=== PATIENT | male | born 1950 | race Caucasian/White ===

== ENCOUNTER 2018-02-24 11:10 | Emergency (ER) | payer MEDICARE, OTHER ==
[2018-02-24 11:38] LABS: INR-International Normal Ratio 1.1; PTT 26.3 SEC (22.9-36.1); Prothrombin Time 13.9 SEC (12.0-14.7)
[2018-02-24] MEDS ORDERED: Nitroglycerin 2% Ointment 1 INCH/1 GM Packet ONE (11:38)
[2018-02-24 11:50] LABS: #Basophils 0.1 thou/uL (0.0-0.2); #Eosinphils 0.2 thou/uL (0.0-0.7); #Lymphocytes 1.1 thou/uL (1.20-3.40); #Monocytes 0.5 thou/uL (0.11-0.59); #Neutrophils 5.5 thou/uL (1.40-6.50); %Basophils 1.1 % (0.0-1.0); %Eosinophils 3.1 % (0.0-10.0); %Lymphocytes 14.5 % (21.0-51.0); %Monocytes 7.2 % (0.0-10.0); %Neutrophils 74.1 % (42.0-75.0); Hemoglobin 11.9 g/dL (14.0-18.0); Mean Corpuscular HGB CONC 31.7 g/dL (32.0-36.0); Mean Corpuscular Hemoglobin 28.1 pg (27.0-31.0); Mean Corpuscular Volume 88.9 fl (80.0-94.0); Mean Platelet Volume 8.6 fL (7.4-10.4); Platelet Count 143 thou/uL (130-400); RBC Distribution Width 15.7 % (11.5-14.5); Red Blood Cell (RBC) Count 4.23 mill/uL (4.70-6.10); White Blood Cell (WBC) Count 7.4 thou/uL (4.8-10.8)
[2018-02-24 11:51] LABS: ALT (SGPT) 23 U/L (8-55); AST (SGOT) 15 U/L (5-34); Alkaline Phosphatase 114 U/L (40-150); Anion Gap 16 mmol/L (10-20); BUN (Urea Nitrogen) 28 mg/dL (8.4-25.7); Bilirubin, Total 0.9 mg/dL (0.2-1.2); Calc. Creatinine Clearance 0 mL/min (70-130); Calcium 10.3 mg/dL (7.8-10.44); Carbon Dioxide 23 mmol/L (23-31); Chloride 107 mmol/L (98-107); Estimated GFR-MDRD 26; Globulin 2.3 g/dL (2.4-3.5); Glucose 136 mg/dL (80-115); Magnesium 2.4 mg/dL (1.6-2.6); Potassium 3.4 mmol/L (3.5-5.1); Protein, Total 6.3 g/dL (5.8-8.1); Sodium 143 mmol/L (136-145)
[2018-02-24 11:52] LABS: CKMB 1.8 ng/mL (0-6.6); Troponin I 0.032 ng/mL (< 0.028)
[2018-02-24 11:55] LABS: Base Excess -0.2 mEq/L (-2 - +2); pH (venous) 7.36 (7.35-7.45)
[2018-02-24 11:56] LABS: Hemoglobin (Hb) 11.6 g/dL (12.6-17.4)
[2018-02-24] MEDS ORDERED: Furosemide 40 MG/4 ML VIAL ONE (12:06)
[2018-02-24] MEDS ORDERED: Potassium Chloride 20 MEQ TAB ONE (12:06)
--- NOTE | 2018-02-24 12:45 | RAD ---
AP VIEW CHEST: HISTORY: Dyspnea. FINDINGS: AP view chest is obtained on 02/24/18. Comparison is made to previous exam from 07/21/15. AP view chest demonstrates sternotomy wires seen. There is a dual-lead intracardiac defibrillator. There is massive cardiomegaly seen. Pulmonary vascular congestion is seen. Bilateral pleural effusi ons seen. IMPRESSION: Marked cardiomegaly and bilateral pleural effusions. Findings compatible with congestive heart failu re. POS: [facility]
== END 2018-02-24 13:36 | disposition short-term general hospital (02) ==
LOC: MADERS 11:10
DX: E87.70 Fluid overload, unspecified (principal); I25.10 Atherosclerotic heart disease of native coronary artery without angina pectoris; E78.5 Hyperlipidemia, unspecified; E66.9 Obesity, unspecified; J44.9 Chronic obstructive pulmonary disease, unspecified; I71.4 Abdominal aortic aneurysm, without rupture; I11.0 Hypertensive heart disease with heart failure; I50.9 Heart failure, unspecified; Z79.82 Long term (current) use of aspirin; Z79.899 Other long term (current) drug therapy
CPT/HCPCS: 71045; 80053; 82553; 82805; 83735; 83880; 84484; 85025; 85610; 85730; 93005; 94760; 96374; J1940

== ENCOUNTER 2018-09-20 13:28 | Outpatient (CLI) | payer MEDICARE ==
[2018-09-20 14:24] LABS: #Basophils 0.1 thou/uL (0.0-0.2); #Eosinphils 0.2 thou/uL (0.0-0.7); #Lymphocytes 0.9 thou/uL (1.20-3.40); #Monocytes 0.9 thou/uL (0.11-0.59); #Neutrophils 4.5 thou/uL (1.40-6.50); %Eosinophils 3.6 % (0.0-10.0); %Lymphocytes 14.3 % (21.0-51.0); %Monocytes 12.9 % (0.0-10.0); %Neutrophils 68.2 % (42.0-75.0); Hemoglobin 9.4 g/dL (14.0-18.0); Mean Corpuscular HGB CONC 29.5 g/dL (32.0-36.0); Mean Corpuscular Volume 78.1 fL (78.0-98.0); Mean Platelet Volume 9.6 fL (7.4-10.4); Platelet Count 189 thou/uL (130-400); RBC Distribution Width 18.4 % (11.5-14.5); Red Blood Cell (RBC) Count 4.08 mill/uL (4.70-6.10); White Blood Cell (WBC) Count 6.5 thou/uL (4.8-10.8)
== END 2018-09-20 13:29 | disposition home or self-care (01) ==
LOC: MADLAB 13:28
PROVIDERS: ATTEND General Practice
DX: D64.9 Anemia, unspecified (principal)
CPT/HCPCS: 85025

== ENCOUNTER 2018-09-22 18:14 | Outpatient (CLI) | payer MEDICARE | END 2018-09-22 18:15 | disposition home or self-care (01) | LOC: MADLAB 18:14 | PROVIDERS: ATTEND General Practice | DX: R19.5 Other fecal abnormalities (principal) | CPT/HCPCS: 82274 ==